=== PATIENT | male | born 1970 | race Caucasian/White ===

== ENCOUNTER → 2016-06-13 | Outpatient (CLI) | payer OTHER ==
[~2016-06-13] MED LIST: ASPI81TA82 PO; ATOR10TA PO; LISI-366 PO; METO50TA PO; OMEP20TA PO; PENVK500 PO; PERC5TAB12 PO
--- NOTE | 2016-06-13 11:06 | RADRPT ---
EXAM DATE/TIME: 06/13/2016 10:44 [facility] COMPARISON: No previous studies available for comparison. INDICATIONS : Left wrist pain no known injury. MEDICAL HISTORY : None. SURGICAL HISTORY : None. ENCOUNTER: Initial ACUITY: >1 year PAIN SCORE: 8/10 LOCATION: Left lateral wrist. FINDINGS: Two view examination of the left wrist demonstrates no soft tissue swelling, dislocation, or fracture . The joint spaces are maintained. Bony mineralization is normal. CONCLUSION: Unremarkable limited examination of the left wrist. Ramana Lara MD on June 13, 2016 at 11:04 Board Certified Radiologist. This report was verified electronically.
--- NOTE | 2016-06-13 11:07 | RADRPT ---
EXAM DATE/TIME: 06/13/2016 10:45 [facility] COMPARISON: No previous studies available for comparison. INDICATIONS : Left elbow pain with no known injury. MEDICAL HISTORY : None. SURGICAL HISTORY : None. ENCOUNTER: Initial ACUITY: 1 year PAIN SCORE: 8/10 LOCATION: Left elbow. FINDINGS: Examination reveals some ossification adjacent to the lateral upper condyle which is likely ligamento us ossification from prior injuries or repetitive trauma. There is no evidence of fracture or joint e ffusion. Mineralization and alignment are satisfactory. CONCLUSION: No acute bony findings Ramana Lara MD on June 13, 2016 at 11:04 Board Certified Radiologist. This report was verified electronically.
--- NOTE | 2016-06-13 11:08 | RADRPT ---
EXAM DATE/TIME: 06/13/2016 10:50 [facility] COMPARISON: No previous studies available for comparison. INDICATIONS : Lower back pain wtih no known injury. MEDICAL HISTORY : None. SURGICAL HISTORY : None. ENCOUNTER: Initial ACUITY: >1 year PAIN SCORE: 10/10 LOCATION: Bilateral lower back. FINDINGS: Alignment is satisfactory. There is no evidence of fracture or destructive change. Disc spaces are fa irly well-preserved throughout. Small predominantly ventral endplate osteophytes are present througho ut. The oblique views reveal satisfactory alignment and appearance of the posterior facet joints. CONCLUSION: Mild degenerative change. No acute bony findings. Ramana Lara MD on June 13, 2016 at 11:05 Board Certified Radiologist. This report was verified electronically.
== END ==
LOC: HRAD 10:30
PROVIDERS: ATTEND General Practice
DX: M54.5 Low back pain (principal); G89.29 Other chronic pain
CPT/HCPCS: 72110; 73070; 73100